=== PATIENT | female | born 1985 | race Two or more races ===

== ENCOUNTER 2024-01-19 19:21 | Emergency (ER) | payer OTHER ==
[~2024-01-19] VITALS: Ht 160 cm; Wt 110.8 kg
[2024-01-19] MEDS: HEPARIN DRIP/D5W 100UNITS/ML 250 ML IV SCH (08:39)
[2024-01-19 19:58] LABS: Eosinophils # (auto) 0.2 10 ^3/uL (0-0.8); Hemoglobin 12.7 g/dL (12.2-16.2); Monocytes # (auto) 0.7 10 ^3/uL (0-1.3); Neutrophils # (auto) 4.8 10 ^3/uL (1.6-8.6); Nucleated Red Blood Cells % 0.1 %; Red Cell Distribution Width 18.1 % (11.8-14.3)
[2024-01-19 20:00] LABS: Basophils # (auto) 0.1 10 ^3/uL (0-0.2); Basophils % (auto) 0.7 % (0.0-2.0); Eosinophils % (auto) 2.7 % (0.0-7.0); Hematocrit 37.7 % (36.0-46.0); Lymphocytes % (auto) 25.5 % (10.0-50.0); Mean Corpuscular Hemoglobin 26.2 pg (28.0-32.0); Mean Corpuscular Hgb Conc. 33.8 g/dL (32.0-36.0); Mean Corpuscular Volume 77.4 fL (80.0-100.0); Monocytes % (auto) 8.9 % (0.0-12.0); Neutrophils % (auto) 62.2 % (37.0-80.0); Red Blood Cells 4.86 10^6/uL (4.0-5.20); White Blood Cell 7.6 10^3/uL (4.4-10.8)
[2024-01-19 20:02] LABS: Urine Bacteria None Seen /hpf (None Seen)
[2024-01-19 20:08] LABS: Alanine Aminotransferase 32 U/L (7-40); Albumin 4.5 g/dL (3.2-4.8); Alkaline Phosphatase 79 U/L (46-116); Anion Gap 6 (5-15); Aspartate Aminotransferase 20 U/L (13-40); BUN/Creatinine Ratio 9.6 (10.0-20.0); Bilirubin, Total 0.7 mg/dL (0.2-1.0); Blood Urea Nitrogen 8 mg/dL (9-23); Calcium 9.6 mg/dL (8.7-10.4); Carbon Dioxide 30 mmol/L (20-30); Chloride 105 mmol/L (98-107); Glucose 107 mg/dL (74-106); Sodium 141 mmol/L (136-145); Total Protein 6.6 g/dL (5.7-8.2)
[2024-01-19 20:40] LABS: Urine Blood Negative /uL (Negative); Urine Clarity Clear (Clear); Urine Color Colorless (Yellow); Urine Mucus FEW (None Seen); Urine Protein, UAD Negative (Negative); Urine Specific Gravity 1.007 (1.001-1.035); Urine Urobilinogen Normal (Negative); Urine WBC <1 /hpf (0 - 5)
[2024-01-19] MEDS: IOHEXOL 350 MG/ML 100ML IJ ONE (21:06)
[2024-01-19] MEDS: HEPARIN SODIUM (PORCINE) 5000 UNITS/ML 1ML VIAL IV ONE ×2 (22:00→23:18)
[2024-01-19] MEDS: LORazepam 2MG/ML-1ML VIAL IV ONE (22:56)
[2024-01-19 22:59] LABS: INR 0.95 (0.9-1.15); Partial Thromboplastin Time 25.9 SEC (24.5-34.5); Prothrombin Time 10.1 sec (9.3-11.8)
[2024-01-19] MEDS ORDERED: HEPARIN DRIP/D5W 100UNITS/ML 250 ML IV SCH (23:15)
[2024-01-20 00:01] VITALS: PULSE 91; RESP 15; O2SAT 95
[2024-01-20] MEDS: ACETAMINOPHEN 500 MG TAB PO ONE (02:12)
[2024-01-20 07:42] VITALS: PULSE 76; RESP 16; O2SAT 94
[2024-01-20 08:05] VITALS: RESP 20; O2SAT 97
[2024-01-20] MEDS: ENOXAPARIN SOD 120 MG/0.8 ML SYRINGE SC ONE (10:04)
[2024-01-20 14:45] VITALS: BP 117/66; PULSE 77; RESP 18; TEMP 98.1; O2SAT 97
== END 2024-01-20 15:08 | disposition short-term general hospital (02) ==
LOC: ER 19:21
DX: R07.89 Other chest pain (principal); R06.02 Shortness of breath; I26.99 Other pulmonary embolism without acute cor pulmonale; Z90.710 Acquired absence of both cervix and uterus
CPT/HCPCS: 36415; 71045; 71275; 80053; 81001; 84484; 85025; 85379; 85610; 85730; 93005; 96372; 96374; 96375; 99285; J1644; J1650; J2060; Q9967